=== PATIENT | male | born 1955 | race Caucasian/White ===

== ENCOUNTER 2018-08-12 06:07 | Day surgery (SDC) | payer BC ==
--- NOTE | 2018-08-04 15:11 | HP ---
AMENDED REPORT NOW INCLUDES DESIGNATED COSIGNER DATE OF ADMISSION: 08/12/2018. DATE OF OFFICE VISIT: 08/04/2018. SURGEON: Alexus Romeo MD * (dictated by ARACELIS Steinberg). PROCEDURE: Right knee arthroplasty with partial meniscectomy, possible chondroplasty, possible synovectomy. CHIEF COMPLAINT: Right knee pain. HISTORY OF PRESENT ILLNESS: Mr. Rodríguez is a 62-year-old gentleman with complaints of right knee pain secondary to a meniscus tear. He has failed conservative treatment and elected to proceed with a right knee arthroscopy on 08/12/18. PAST MEDICAL HISTORY: Denies. PAST SURGICAL HISTORY: Bilateral carpal tunnel release, left third finger surgery, and left thumb surgery. CURRENT MEDICATIONS: None. ALLERGIES: None. FAMILY HISTORY: Denies. SOCIAL HISTORY: He is a 62-year-old gentleman who lives with his . He does not smoke or use drugs. He uses occasional alcohol. REVIEW OF SYSTEMS: A complete 14 point review of systems was reviewed with the patient. It was all negative or noncontributory. He denies a history of DVT, PE, hepatitis, HIV, or anesthesia problems. PHYSICAL EXAMINATION GENERAL: He is well-developed, well-nourished, in no acute distress. VITAL SIGNS: He stands 5 feet 11 inches tall, he weighs 194 pounds. His blood pressure is 102/86 and his heart rate is 72. HEENT: Normocephalic, atraumatic. NECK: Supple. No palpable lymph nodes. CARDIAC: Regular rate and rhythm. Strong S1, S2. PULMONARY: The lungs are clear to auscultation bilaterally. ABDOMEN: Soft, nontender, nondistended. MUSCULOSKELETAL: Right lower extremity: The skin is intact. There are no open wounds or abrasions. He has some tenderness over the medial joint line. Positive Apley's. Positive Les's. Range of motion is 5 to 125 degrees. He is distally and neurovascularly intact. NEUROLOGIC: He is alert and oriented times three. ASSESSMENT AND PLAN: Mr. Rodríguez is a 62-year-old gentleman with complaints of right knee pain. An MRI confirms a medial meniscus tear and he has elected to proceed with a right knee arthroscopy with partial meniscectomy, possible chondroplasty, possible synovectomy. His surgery is scheduled for 08/12/[address] Romeo discussed the risks and benefits of the surgery at today's visit and his questions were answers. He will follow-up with Dr. Romeo two weeks after the surgery. ARACELIS STEINBERG [id number]/[facility] #: [id number] JAN
[~2018-08-12 06:07] MED LIST: Buffered Lidocaine 0.9% SYRIN* 5 ML/SYR SYRINGE INTRADERM ONE; Dexamethasone IV* 4 MG/ML 1 ML (4 MG) IV SLOW PU ONE; Metoclopramide IV* 5 MG/ML 2 ML VIAL IV SLOW PU ONE
[2018-08-12] MEDS ORDERED: EPINEPHRINE 1 MG/ML 1 ML VIAL ONE (06:54)
[2018-08-12] MEDS ORDERED: methylPREDNISolone ACETATE 80* 80 MG/ML 1 ML VIAL ONE (06:54)
[2018-08-12] MEDS ORDERED: ceFAZolin 2 GM PREMIX in ORs 2 GM/50 ML BAG IVPB ONE (06:55)
[2018-08-12] MEDS ORDERED: Bupivacaine 0.5% SDV PF* 30ML VIAL ONE (06:55)
[2018-08-12] MEDS ORDERED: Dexamethasone IV* 4 MG/ML 1 ML (4 MG) ONE (06:55)
[2018-08-12] MEDS ORDERED: Metoclopramide IV* 5 MG/ML 2 ML VIAL ONE (06:55)
[2018-08-12] MEDS ORDERED: Propofol* 10 MG/ML 20 ML BTL IV PUSH ONE (07:22)
[2018-08-12] MEDS ORDERED: Lidocaine 2% PF * 5 ML VIAL ONE (07:22)
[2018-08-12] MEDS ORDERED: Ondansetron INJ* 2 MG/ML VIAL ONE (07:22)
[2018-08-12] MEDS ORDERED: fentaNYL* 50 MCG/ML 5 ML VIAL (250 MCG VIAL) ONE (07:22)
[2018-08-12] MEDS ORDERED: Midazolam* 1 MG/ML 5 ML VIAL (5 MG) ONE (07:22)
[2018-08-12] MEDS ORDERED: Ketorolac INJ* 30 MG/ML 1 ML VIAL ONE (07:22)
[2018-08-12] MEDS ORDERED: fentaNYL* 50 MCG/ML 2 ML VIAL (100 MCG VIAL) IV PRN (07:53)
[2018-08-12] MEDS ORDERED: Ondansetron INJ* 2 MG/ML VIAL IV PRN (07:53)
[2018-08-12] MEDS ORDERED: DiMENhydriNATE IV* 50 MG/ML VIAL IV PUSH PRN (07:53)
[2018-08-12] MEDS ORDERED: Naloxone* 0.4 MG/ML 1 ML VIAL IV PRN (07:53)
[2018-08-12] MEDS ORDERED: oxyCODONE/Acetamin 5/325 MG* TAB PO PRN (07:53)
[2018-08-12] MEDS ORDERED: Phenylephrine INJ* 10 MG/ML 1 ML VIAL (10 MG) ONE (07:54)
[2018-08-12] MEDS ORDERED: fentaNYL* 50 MCG/ML 2 ML VIAL (100 MCG VIAL) ONE (08:03)
[2018-08-12 09:23] VITALS: BP 112/72
--- NOTE | 2018-08-13 09:09 | OP ---
DATE OF OPERATION: 08/12/18 - [facility] DATE OF : 59 SURGEON: Alexus Romeo MD. DUST MILL OPERATOR: ARACELIS Gonzalez. Ms. Motta did help throughout the procedure with preparation of the leg, wound retraction, manipulation of the knee, and wound closure. ANESTHESIOLOGIST: Dr. Valdez. ANESTHESIA: General. PRE-OP DIAGNOSIS: Right knee medial meniscal tear, [id number] osteoarthritis. POST-OP DIAGNOSIS: Right knee medial meniscal tear, qbzg-pb-[id number] osteoarthritis. OPERATIVE PROCEDURE: Right knee arthroscopy with partial medial meniscectomy and medial chondroplasty. ESTIMATED BLOOD LOSS: Less than 25 cc. SPECIMEN: None. COMPLICATIONS: None. BRIEF HISTORY/INDICATIONS: Mr. Rodríguez is a 62-year-old gentleman with mechanical symptoms and pain on the right knee. MRI confirmed a medial meniscal tear. He did have some known arthritic changes on plain films. He failed conservative treatment and wished to proceed with right knee arthroscopy with partial meniscectomy, possible chondroplasty, and possible synovectomy. Informed consent was obtained from the patient. He understood the the risks of the surgery included but were not limited to bleeding, infection, damage to nearby structures, continued pain, need for further surgery, re-tear of the meniscus, stroke, heart attack, blood clot, and . He wished to proceed. INTRAOPERATIVE FINDINGS: Intraoperatively, the patient was noted to have a complex tear of the medial meniscus with a parrot beak type fragment that was displaced into the joint. It was in the white-red zone of the posterior 50% of the meniscus. He was noted to have some grade 3 and 4 Outerbridge cartilage changes along the medial femoral condyle, grade 2 and 3 Outerbridge cartilage changes in the patellofemoral compartments. Overall, a picture of moderate arthritis. DESCRIPTION OF PROCEDURE: Mr. Rodríguez was identified in the preanesthesia unit. His right lower extremity was marked as the correct operative site. Informed consent was signed and placed in the chart. The patient was taken to the operating room and placed under general anesthesia. His right lower extremity was prepped and draped in the usual sterile fashion. Preop time-out was made to correctly identify the patient, side, and site. Appropriate perioperative antibiotics were given within 1 hour of incision. A standard 1.5 cm anterolateral portal incision was made with a 10 blade and carried through the capsule. The trocar was introduced. As soon as the light and water sources were turned on, there was immediate visualization of the suprapatellar pouch. A tour of the knee joint was performed. Suprapatellar pouch had no obvious abnormalities. Patellofemoral compartment had grade 2 and 3 Outerbridge cartilage changes. There was no exposed chondral bone. Medial gutter had no significant plica or loose body. Medial compartment showed some grade 3 and 4 Outerbridge cartilage changes with a small amount of expose of chondral bone along the medial femoral condyle, medial aspect. There was a visible and displaced medial meniscal tear. This was a complex tear with a parrot beak type component displaced into the joint line. The posterior 50% of the meniscus was involved. ACL and PCL appeared to be intact. The knee was placed in a [id number]-am-jsso position. There was no visible lateral meniscal tear. No significant degenerative change in the lateral compartment. Lateral gutter showed no loose body or plica. Under direct visualization, a medial portal incision was made with a 10 blade. The probe was introduced and a second tour of the knee joint was performed. There were no additional findings. Probing of the medial meniscus showed complex tear involving the posterior 50% of the meniscus. This was mainly in the white-red zone. Shaver and straight biter were used to perform partial medial meniscectomy. Further probing of the meniscus showed no obvious additional tears or flipped fragments. Radiofrequency ablation wand was used to further smooth the border of the medial meniscus. Radiofrequency ablation wand was then used to smooth any cartilage flapping along the medial femoral condyle where there were some grade 3 and 4 Outerbridge cartilage changes. The knee was copiously irrigated with sterile saline. All instruments were removed. Incisions were closed using 3-0 nylon suture. An intraarticular injection of 80 mg Depo-Medrol and 6 cc of 0.25% Marcaine was placed in the knee joint. The incisions were dressed with Xeroform, 4x4s, and Webril. Guanako wrap and cold pack were placed over this. The patient's anesthesia was reversed without difficulty. He was taken to the PACU in stable condition. Intended weightbearing will be weightbearing as tolerated. Intended DVT prophylaxis will be aspirin. He will follow up in 2 weeks' time for suture removal. [id number]/[facility] #: [id number] [facility]
== END 2018-08-12 09:50 | disposition home or self-care (01) ==
LOC: OR 06:07
PROVIDERS: ATTEND Orthopaedic Surgery Adult Reconstructive Orthopaedic Surgery
DX: S83.231A Complex tear of medial meniscus, current injury, right knee, initial encounter (principal); M17.11 Unilateral primary osteoarthritis, right knee; Z87.891 Personal history of nicotine dependence; X58.XXXA Exposure to other specified factors, initial encounter; Y92.9 Unspecified place or not applicable
CPT/HCPCS: J0690; J1040; J1100; J1885; J2250; J2405; J2704; J2765; J3010

== ENCOUNTER → 2019-07-19 05:38 | Day surgery (SDC) | payer BC ==
--- NOTE | 2019-07-04 12:25 | HP ---
PREOPERATIVE HISTORY AND PHYSICAL: DATE OF ADMISSION/SURGERY: 07/19/19 DATE OF OFFICE VISIT: 06/29/19 ATTENDING PHYSICIAN: Dr. Alexus Romeo.* (DICTATED BY ARACELIS MILIAN) SURGERY SCHEDULED: Left knee arthroscopy. CHIEF COMPLAINT: Left knee pain. HISTORY OF PRESENT ILLNESS: The patient is a 63-year-old male who has had several months of progressive left knee pain. He underwent a right knee arthroscopy last year and did very well with that, but over the last 8 months, the left knee pain especially along the medial aspect of his knee has progressed. He underwent a recent MRI, which revealed a medial meniscal tear. He has been offered knee arthroscopy and elected to proceed with surgery scheduled on 07/19/19. PAST MEDICAL HISTORY: Benign. PAST SURGICAL HISTORY: He has had bilateral carpal tunnel release. MEDICATIONS: Meloxicam 7.5 mg p.o. daily. ALLERGIES: No known drug allergies. FAMILY HISTORY: Dad with a history of emphysema and lung cancer. Mother with a history of chronic anemia, which requires blood transfusion. SOCIAL HISTORY: He does not smoke. He drinks 3 to 4 beers daily. He denies use of illicit drugs. He is . His currently living with him. He works at [employer]. REVIEW OF SYSTEMS: He denies recent loss of consciousness, lightheadedness, dizziness, shortness of breath, chest pain, or palpitations. He denies gastrointestinal or genitourinary discomfort. PHYSICAL EXAMINATION GENERAL: He is alert and oriented x3, in no acute distress. Pleasant and cooperative. VITAL SIGNS: Height 71.5 inches, weight 195 pounds. Pulse 57, blood pressure 102/78, respirations 14. HEENT: PERRLA. LUNGS: Clear to auscultation without wheeze. HEART: Regular rate and rhythm without murmur. ABDOMEN: Nontender, nondistended. Normoactive bowel sounds x4 quadrants. EXTREMITIES: Left knee reveals tenderness to palpation along the medial joint line. There is scant effusion. He has 0 to 120 degrees motion. He has positive Les's and Apley's test. There is no varus or valgus instability. His sensation and circulation are intact distally. He has 2+ pedal pulse. IMPRESSION: Medial meniscal tear of the left knee. PLAN: The patient is scheduled for left knee arthroscopy, partial medial meniscectomy on 07/19/[address] Romeo. Risks and benefits of the procedure were fully discussed with the patient today at his office visit and he elected to proceed. He will follow up in 10 to [address] Romeo. ARACELIS MILIAN [id number]/[facility] #: [id number] MTDThomas
[~2019-07-19 05:38] MED LIST changes: -Buffered Lidocaine 0.9% SYRIN* 5 ML/SYR SYRINGE INTRADERM ONE; +Buffered Lidocaine 1% SYRIN* 1 ML/SYRINGE INTRADERM ONE; +Dexamethasone IV* 4 MG/ML 1 ML (4 MG) ONE; +DiMENhydriNATE IV* 50 MG/ML VIAL IV PUSH PRN; +EPINEPHRINE 1 MG/ML 1 ML VIAL ONE; +EPINEPHrine SYR 0.1MG/ML* SYRINGE ONE; +Famotidine IV* 10 MG/ML 2 ML (20 mg) IV ONE; +Famotidine IV* 10 MG/ML 2 ML (20 mg) ONE; +HYDROcodone/ACETAMIN 5-325 MG* 1 TAB ONE; +KETAMINE HCL* 50 MG/ML 10 ML VIAL ONE; +Ketorolac INJ* 30 MG/ML 1 ML VIAL ONE; +Lactated Ringers 1000 ML Bag* 1,000 ML IV SCH; +Lidocaine 2% PF * 5 ML VIAL ONE; -Metoclopramide IV* 5 MG/ML 2 ML VIAL IV SLOW PU ONE; +Midazolam* 1 MG/ML 2 ML VIAL (2 MG) ONE; +Naloxone* 0.4 MG/ML 1 ML VIAL IV PRN; +Ondansetron INJ* 2 MG/ML VIAL ONE; +Propofol* 10 MG/ML 20 ML BTL ONE; +Ropivacaine 0.2% * 2 MG/ML VIAL ONE; +ceFAZolin 2 GM in NS PREMIX(*) 2 GM/100 ML BAG IVPB ONE; +fentaNYL* 50 MCG/ML 2 ML VIAL (100 MCG VIAL) ONE; +methylPREDNISolone ACETATE 80* 80 MG/ML 1 ML VIAL ONE
[2019-07-19] MEDS: fentaNYL* 50 MCG/ML 2 ML VIAL (100 MCG VIAL) IV PRN ×4 (09:13→09:54)
[2019-07-19 10:39] VITALS: BP 137/80
--- NOTE | 2019-07-20 03:08 | OP ---
DATE OF OPERATION: 07/19/19 - [facility] DATE OF : 59 ATTENDING SURGEON: Alexus Romeo MD BELT PUNCHER: ARACELIS Whitten. Mr. Salazar did help throughout the procedure with preparation of the leg, wound retraction, manipulation of the knee, and wound closure. ANESTHESIOLOGIST: Dr. Olivares ANESTHESIA: General. PRE-OP DIAGNOSES: 1. Left knee medial meniscal tear. 2. Ddpv-od-vjviqquu osteoarthritis. POST-OP DIAGNOSES: 1. Left knee medial meniscal tear. 2. Gfkkvasn-uh-hhdhbh osteoarthritis in the medial compartment. OPERATIVE PROCEDURE: Left knee arthroscopy with partial medial meniscectomy. COMPLICATIONS: None. SPECIMEN: None. ESTIMATED BLOOD LOSS: Less than 25 cc. BRIEF HISTORY/INDICATIONS: Mr. Rodríguez is a 63-year-old gentleman with 3 months of acute left knee pain. He failed treatment and continued to have mechanical symptoms consistent with meniscal tear. An MRI confirmed a medial meniscal tear. Radiographs showed minimal arthritic changes. Due to continued pain and decreased quality of life, the patient elected to undergo left knee arthroscopy with partial meniscectomy. Informed consent was obtained from the patient. He understood the risks of surgery included but were not limited to bleeding, infection, damage to nearby structures, continued pain, need for further surgery , intraoperative complications, retear of the meniscus, progression of arthritis , anesthesia complications, stroke, heart attack, blood clot, and . He wished to proceed. INTRAOPERATIVE FINDINGS: Intraoperatively, the patient was noted to have a complex tear in the medial meniscus involving the posterior 50% of the meniscus in the red- white. There was a radial component as well as the longitudinal component. The patient also was noted to have grade 3 and 4 Outerbridge cartilage changes in the medial compartment involving the medial femoral condyle. DESCRIPTION OF PROCEDURE: Mr. Rodríguez was identified in the preanesthesia unit. His left lower extremity was marked as the correct operative side. Informed consent was signed and placed in the chart. The patient was taken to the operating room and placed under anesthesia. Left lower extremity was prepped and draped in the usual sterile fashion. Preop time-out was made to correctly identify the patient, side and site. Appropriate perioperative antibiotics were given within 1 hour of incision. A 0.5 cm anterolateral portal incision was made with a 15-blade and carried down to the capsule. The trocar was introduced. As soon as the light and water sources were turned on, there was immediate visualization of the suprapatellar pouch. A tour of the knee joint was performed. Suprapatellar pouch had no obvious abnormalities. The femoral compartment showed some minimal degenerative changes. Medial gutter showed no loose body or plica. Medial compartment showed a complex tear involving the posterior 50% of the medial meniscus. The medial femoral condyle had grade 3 and 4 Outerbridge cartilage changes along the majority of the weightbearing surface. There was exposed subchondral bone. ACL and PCL appeared to be intact. The knee was placed in the [id number]-aq-apzf position. Lateral meniscus had some degenerative fraying but no obvious tear. There were minimal degenerative changes in the lateral compartment. Lateral gutter had no abnormalities. Under direct visualization, a medial portal incision was made. A probe was introduced. A second tour of the knee joint was performed. No additional findings were noted. The medial meniscus had a complex type tear with radial and longitudinal components involving the red-white and red-red zone. Straight biter and shaver were used to perform partial medial meniscectomy. A smooth border of the meniscus was obtained. Further probing of the medial meniscus showed no additional tears or slipped fragments. Radiofrequency ablation wand was used to further smooth the edge of the meniscus. The knee was copiously irrigated with sterile saline. All instruments were removed. Incisions were closed using 3-0 nylon suture. Intraarticular injection of 80 mg of Depo-Medrol and 6 cc of 0.5% bupivacaine was placed in the knee joint. Incisions were covered with Xeroform, 4x4s, and Webril. An Guanako wrap and cold pack were placed over this. The patient's anesthesia was reversed without difficulty. He was taken to the PACU in stable condition. The intended weightbearing will be weightbearing as tolerated. Intended DVT prophylaxis will be aspirin. He will follow up in 2 weeks' time for suture removal. [id number]/[facility] #: [id number] JAN
== END | disposition home or self-care (01) ==
LOC: OR 05:38
PROVIDERS: ATTEND Orthopaedic Surgery Adult Reconstructive Orthopaedic Surgery
DX: S83.242A Other tear of medial meniscus, current injury, left knee, initial encounter (principal); M17.12 Unilateral primary osteoarthritis, left knee; X58.XXXA Exposure to other specified factors, initial encounter; Y92.9 Unspecified place or not applicable; Z87.891 Personal history of nicotine dependence
CPT/HCPCS: J0171; J0690; J1040; J1100; J1885; J2250; J2405; J2704; J2795; J3010